=== PATIENT | male | born 1970 | race Caucasian/White ===

== ENCOUNTER 2018-03-09 20:52 | Emergency (ER) | payer MEDICAID ==
[~2018-03-09] VITALS: Ht 170.2 cm; Wt 98.0 kg
[2018-03-10 01:18] VITALS: BP 114/67
[2018-03-10] MEDS ORDERED: TRAMADOL 50MG TABLET PO ONE (03:00)
== END 2018-03-10 03:46 | disposition home or self-care (01) ==
LOC: ER 21:41
DX: K64.4 Residual hemorrhoidal skin tags (principal); F17.200 Nicotine dependence, unspecified, uncomplicated
CPT/HCPCS: 99282